=== PATIENT | male | born 1985 | race American Indian/Alaskan Native ===

== ENCOUNTER 2016-11-20 08:07 | Emergency (ER) | payer MEDICAID ==
[2016-11-20 08:07] VITALS: BMI 28.5
[2016-11-20 08:28] VITALS: BP 136/72; PULSE 71; RESP 15; TEMP 98.2; O2SAT 96
[2016-11-20] MEDS ORDERED: Oxycodone/Acetaminophen 5/325 mg Tab PO STA (09:18)
--- NOTE | 2016-11-20 09:23 | ED PDOC ---
Arrival/HPI - General Chief Complaint: Dental Pain Time Seen by Provider: 11/20/16 09:18 Historian: Patient - History of Present Illness Narrative History of Present Illness (Text): 11/20/16 09:20 31-year-old male presents today with left upper dental pain since 5 PM yesterday. No medications have been taken for pain at home. Patient describes a severe throbbing pain in the left upper molars. He denies trismus or drooling. No fevers or chills. Denies any trauma or injury. No other complaints Time/Duration: Other (5pm yesterday) Symptom Onset: Sudden Symptom Course: Worsening Quality: Throbbing Severity Level: Severe Past Medical History - Provider Review Nursing Documentation Reviewed: Yes - Travel History Have you recently traveled outside [place] w/in the past 3 mons?: No - Tetanus Immunization Tetanus Immunization: Unknown - Past Medical History Past Medical History: No Previous - Cardiac Hx Cardiac Disorders: Yes Hx Hypertension: Yes - Pulmonary Hx Respiratory Disorders: Yes Hx Bronchitis: Yes - Neurological Hx Neurological Disorder: Yes Hx Migraine: Yes - HEENT Hx HEENT Disorder: No - Renal Hx Renal Disorder: No - Endocrine/Metabolic Hx Endocrine Disorders: No - Hematological/Oncological Hx Blood Disorders: No - Integumentary Hx Dermatological Disorder: No - Musculoskeletal/Rheumatological Hx Musculoskeletal Disorders: No - Gastrointestinal Hx Gastrointestinal Disorders: No - Genitourinary/Gynecological Hx Genitourinary Disorders: No - Psychiatric Hx Psychophysiologic Disorder: No Hx Substance Use: No - Past Surgical History Past Surgical History: No Previous - Anesthesia Hx Anesthesia: No Hx Anesthesia Reactions: No Hx Malignant Hyperthermia: No Family/Social History - Physician Review Nursing Documentation Reviewed: Yes Family/Social History: Unknown Family HX Smoking Status: Former Smoker Hx Alcohol Use: No Hx Substance Use: No Allergies/Home Meds Allergies/Adverse Reactions: Allergies camomile lotion Allergy (Uncoded 11/20/16 08:27) RASH Review of Systems - Review of Systems Constitutional: absent: Fatigue, Fevers ENT: Other (left upper molar dental pain). absent: Sinus Congestion Respiratory: absent: SOB, Cough Cardiovascular: absent: Chest Pain, Palpitations Gastrointestinal: absent: Abdominal Pain, Nausea, Vomiting Skin: absent: Rash Neurological: absent: Headache, Dizziness Psychiatric: absent: Anxiety, Depression Physical Exam Vital Signs Reviewed: Yes Vital Signs Temp Pulse Resp BP Pulse Ox 11/20/16 08:27 98.2 F 71 15 136/72 96 Temperature: Afebrile Blood Pressure: Normal Pulse: Regular Respiratory Rate: Normal Appearance: Positive for: Well-Appearing, Non-Toxic, Comfortable Pain Distress: None Mental Status: Positive for: Alert and Oriented X 3 - Systems Exam Head: Present: Atraumatic Conjunctiva: Present: Normal Ears: Present: Normal, NORMAL TM Mouth: Present: Moist Mucous Membranes, Normal Lips, Normal Tounge. No: Drooling, Trismus, Normal Teeth (+ left upper molar fractures, with surrounding edema; no erythema; + tenderness) Pharnyx: Present: Normal. No: ERYTHEMA, EXUDATE, TONSILS ENLARGED, Peritonsilar Swelling, Uvular Deviation, Muffled/Hoarse Voice Neck: Present: Normal Range of Motion. No: Lymphadenopathy Respiratory/Chest: Present: Clear to Auscultation, Good Air Exchange. No: Respiratory Distress, Accessory Muscle Use Cardiovascular: Present: Regular Rate and Rhythm, Normal S1, S2. No: Murmurs Neurological: Present: GCS=15 Skin: Present: Warm, Dry Psychiatric: Present: Alert Medical Decision Making ED Course and Treatment: 11/20/16 09:22 Patient is nontoxic well-appearing in no distress with stable vital signs No trismus or drooling, moist mucous membranes Amoxicillin Toradol percocet Patient reassessment: Patient is feeling better after medications. I advised follow-up with the dentist within the next 2 days. I advised immediate return is symptoms worsen persist or if new concerning symptoms develop Patient verbalizes understanding of discharge instructions and need for immediate followup. Impression: Toothache Motrin every 6 hours as needed for pain Amoxicillin 1 tablet 3 times daily x 10 days percocet; 1 tablet three times daily x 10 days. Follow-up with the dentist within the next 2 days Return immediately if symptoms worsen persist or if new concerning symptoms develop - Medication Orders Current Medication Orders: Amoxicillin (Amoxil 500 Mg Cap) 500 mg PO STAT STA PRN Reason: Protocol Stop: 11/20/16 09:19 Ketorolac Tromethamine (Toradol) 60 mg IM STAT STA Stop: 11/20/16 09:19 Oxycodone/Acetaminophen (Percocet 5/325 Mg Tab) 1 tab PO STAT STA Stop: 11/20/16 09:19 Disposition/Present on Arrival - Present on Arrival Any Indicators Present on Arrival: No History of DVT/PE: No History of Uncontrolled Diabetes: No Urinary Catheter: No History of Decub. Ulcer: No History Surgical Site Infection Following: None - Disposition Have Diagnosis and Disposition been Completed?: Yes Diagnosis: Toothache Disposition: HOME/ ROUTINE Disposition Time: 09:24 Patient Plan: Discharge Condition: GOOD Discharge Instructions (ExitCare): Toothache (ED) Additional Instructions: Motrin every 6 hours as needed for pain Amoxicillin 1 tablet 3 times daily x 10 days percocet; 1 tablet three times daily x 10 days. Follow-up with the dentist within the next 2 days Return immediately if symptoms worsen persist or if new concerning symptoms develop Prescriptions: Amoxicillin 500 mg PO TID #30 tab Ibuprofen [Motrin] 600 mg PO Q6H PRN #20 tab PRN Reason: pain/fever reduction oxyCODONE/Acetaminophen [Percocet 5/325 mg Tab] 1 tab PO Q6H PRN #6 tab PRN Reason: moderate to severe pain Referrals: Dhruv Owens MD [Primary Care Provider] - Follow up with primary Tripp Alexandra DMD [Staff Provider] - Follow up with primary Tam Ceja DMD [Non-Staff] - Follow up with primary Forms: [email or web address] (Azeri), WORK NOTE
== END 2016-11-20 10:00 | disposition home or self-care (01) ==
LOC: ED 08:07
DX: K08.89 Other specified disorders of teeth and supporting structures (principal)
CPT/HCPCS: 96372; 99282; J1885

== ENCOUNTER 2017-01-16 23:40 | Emergency (ER) | payer MEDICAID ==
[2017-01-16 23:41] VITALS: BMI 28.5
[2017-01-17 00:09] VITALS: BP 138/84; PULSE 68; RESP 18; TEMP 98.8; O2SAT 99
--- NOTE | 2017-01-17 00:49 | ED PDOC ---
Arrival/HPI - General Chief Complaint: Cough, Cold, Congestion Time Seen by Provider: 01/17/17 00:42 Historian: Patient - History of Present Illness Narrative History of Present Illness (Text): 01/17/17 00:44 This 31-year-old male with a past medical history of asthma presents to the emergency department complaining of cough, and wheezing times x day. Patient denies shortness of breath, chest pain, abdominal pain, skin rash, urinary symptoms, recent travel, sick contacts dizziness, or abnormal gait Time/Duration: Other (1 day) Context: Home Past Medical History - Provider Review Nursing Documentation Reviewed: Yes - Tetanus Immunization Tetanus Immunization: Unknown - Past Medical History Past Medical History: No Previous - Cardiac Hx Cardiac Disorders: Yes Hx Hypertension: Yes - Pulmonary Hx Respiratory Disorders: Yes Hx Bronchitis: Yes - Neurological Hx Neurological Disorder: Yes Hx Migraine: Yes - HEENT Hx HEENT Disorder: No - Renal Hx Renal Disorder: No - Endocrine/Metabolic Hx Endocrine Disorders: No - Hematological/Oncological Hx Blood Disorders: No - Integumentary Hx Dermatological Disorder: No - Musculoskeletal/Rheumatological Hx Musculoskeletal Disorders: No - Gastrointestinal Hx Gastrointestinal Disorders: No - Genitourinary/Gynecological Hx Genitourinary Disorders: No - Psychiatric Hx Psychophysiologic Disorder: No Hx Substance Use: No - Past Surgical History Past Surgical History: No Previous - Anesthesia Hx Anesthesia: No Hx Anesthesia Reactions: No Hx Malignant Hyperthermia: No Family/Social History - Physician Review Nursing Documentation Reviewed: Yes Family/Social History: Other (noncontributory) Smoking Status: Former Smoker Hx Alcohol Use: No Hx Substance Use: No Allergies/Home Meds Allergies/Adverse Reactions: Allergies camomile lotion Allergy (Uncoded 11/20/16 08:27) RASH Review of Systems - Review of Systems Constitutional: Normal. absent: Fatigue, Weight Change, Fevers, Night Sweats Eyes: Normal ENT: Normal Respiratory: Cough, Sputum, Wheezing. absent: SOB Cardiovascular: Normal. absent: Chest Pain, Palpitations Gastrointestinal: Normal. absent: Abdominal Pain, Nausea, Vomiting Genitourinary Male: Normal. absent: Dysuria, Frequency, Hematuria Musculoskeletal: Normal Skin: Normal. absent: Rash Neurological: Normal. absent: Headache, Dizziness, Focal Weakness, Gait Changes , Speech Changes, Facial Droop, Disequilibrium Endocrine: Normal Hemo/Lymphatic: Normal Psychiatric: Normal Physical Exam Vital Signs Temp Pulse Resp BP Pulse Ox 10/13/17 00:07 98.8 F 68 18 138/84 99 Temperature: Afebrile Blood Pressure: Normal Pulse: Regular Respiratory Rate: Normal Appearance: Positive for: Well-Appearing, Non-Toxic, Comfortable Pain Distress: None Mental Status: Positive for: Alert and Oriented X 3 - Systems Exam Head: Present: Atraumatic, Normocephalic Pupils: Present: PERRL Extroacular Muscles: Present: EOMI Conjunctiva: Present: Normal Mouth: Present: Moist Mucous Membranes Pharnyx: Present: Normal. No: ERYTHEMA, EXUDATE, TONSILS ENLARGED Nose (External): Present: Atraumatic Nose (Internal): Present: Normal Inspection Neck: Present: Normal Range of Motion, Trachea Midline. No: Meningeal Signs Respiratory/Chest: Present: Wheezes, Rhonchi. No: Good Air Exchange, Respiratory Distress, Accessory Muscle Use, Decreased Breath Sounds, Rales, Retracting, Tachypneic, Tender to Palpation Cardiovascular: Present: Regular Rate and Rhythm, Normal S1, S2. No: Murmurs Abdomen: No: Tenderness Back: Present: Normal Inspection Upper Extremity: Present: Normal Inspection, Normal ROM Lower Extremity: Present: Normal Inspection, Normal ROM Neurological: Present: GCS=15, CN II-XII Intact, Speech Normal, Motor Func Grossly Intact, Normal Sensory Function, Normal Cerebellar Funct, Gait Normal, Memory Normal Skin: Present: Warm, Dry, Normal Color. No: Rashes Psychiatric: Present: Alert, Oriented x 3, Normal Insight, Normal Concentration Medical Decision Making ED Course and Treatment: 01/17/17 00:45 Re-evaluation. Patient feels better. Discussed results and plan with patient who expresses understanding. All questions answered and there is agreement with the plan to discharge home with instructions. Patient stable for discharge. Return if symptoms persist or worsen. Patient refused to have Nebulizer, since he is in a hurry to go home. He stated he has nebulizer at home. Patient was recommended to f/u pmd tomorrow for revaluation, and to return to emergency if symptoms worsen. I reviewed risk in using Prednisone including AVN, DM, glaucoma, osteoporosis, mood disordere, liver failure, renal failure. He stated he understood risk, but he would like to have a prescription for Prednisone. Re-evaluation Time: 00:45 Reassessment Condition: Re-examined - Medication Orders Current Medication Orders: Azithromycin (Zithromax) 500 mg PO STAT STA PRN Reason: Protocol Stop: 01/17/17 00:44 Prednisone (Prednisone Tab) 60 mg PO STAT ONE Stop: 01/17/17 00:44 Disposition/Present on Arrival - Present on Arrival Any Indicators Present on Arrival: No History of DVT/PE: No History of Uncontrolled Diabetes: No Urinary Catheter: No History of Decub. Ulcer: No History Surgical Site Infection Following: None - Disposition Have Diagnosis and Disposition been Completed?: Yes Diagnosis: Acute bronchitis Disposition: HOME/ ROUTINE Disposition Time: 00:45 Patient Plan: Discharge Condition: GOOD Discharge Instructions (ExitCare): Acute Bronchitis (ED) Additional Instructions: Call private doctor fro follow up visit in 1-2 days. Take medication as instructed. Return to emergency if symptoms worsen, fever, or worsening of symptoms. continue with nebulizer at home as instructed by your doctor Prescriptions: Azithromycin [Z-Sidney] 250 mg PO DAILY #4 tab Prednisone [Deltasone] 60 mg PO DAILY #9 tablet Promethazine [Phenergan Syrup] 12.5 mg PO Q6H PRN #120 ml PRN Reason: Cough Referrals: [facility] [Outside] - Follow up with primary [facility] [place] [Outside] - Follow up with primary
== END 2017-01-17 01:00 | disposition home or self-care (01) ==
LOC: ED 23:40
DX: J20.9 Acute bronchitis, unspecified (principal)

== ENCOUNTER 2017-04-20 14:41 | Emergency (ER) | payer OTHER, MEDICAID ==
[2017-04-20 14:58] VITALS: BMI 30.4
[2017-04-20 15:05] VITALS: TEMP 97.9; O2SAT 98
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
[2017-04-20 16:45] VITALS: BP 135/77; PULSE 76; RESP 16
== END 2017-04-20 16:45 ==
LOC: ED 14:41
DX: S09.90XA Unspecified injury of head, initial encounter (principal); V43.52XA Car driver injured in collision with other type car in traffic accident, initial encounter; Y92.410 Unspecified street and highway as the place of occurrence of the external cause; R51 Headache
CPT/HCPCS: 70450; 96372; 99284; J1885

== ENCOUNTER 2017-04-28 10:21 | Emergency (ER) | payer OTHER, MEDICAID ==
[2017-04-28 10:22] VITALS: BMI 30.4
[2017-04-28 10:36] VITALS: TEMP 98.3
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
[2017-04-28 13:58] VITALS: BP 128/72; PULSE 80; RESP 18; O2SAT 100
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
== END 2017-04-28 13:58 | disposition home or self-care (01) ==
LOC: ED 10:21
DX: M54.5 Low back pain (principal)
CPT/HCPCS: 72110; 96372; 99283; J1885

== ENCOUNTER 2017-05-11 10:45 | Emergency (ER) | payer MEDICAID, OTHER ==
[2017-05-11 10:45] VITALS: BMI 30.4
[2017-05-11 11:07] VITALS: RESP 18; TEMP 98.2; O2SAT 100
[2017-05-11] MEDS ORDERED: cefTRIAXone (Rocephin) 250 mg Inj IM STA (11:21)
--- NOTE | 2017-05-11 11:25 | ED PDOC ---
Arrival/HPI - General Chief Complaint: Male Genitourinary Time Seen by Provider: 05/11/17 10:51 Historian: Patient - History of Present Illness Narrative History of Present Illness (Text): 05/11/17 11:22 This 32 yo male whoe denies pmh, presents to this ED requesting STD test for unprotected sex x 2 days. Patient denies other complains. Patient is asymptomatic. Time/Duration: Other (noncontributory) Context: Home Past Medical History - Provider Review Nursing Documentation Reviewed: Yes - Infectious Disease Hx of Infectious Diseases: None - Tetanus Immunization Tetanus Immunization: Unknown - Past Medical History Past Medical History: No Previous - Cardiac Hx Cardiac Disorders: Yes Hx Hypertension: Yes - Pulmonary Hx Respiratory Disorders: Yes Hx Bronchitis: Yes - Neurological Hx Neurological Disorder: Yes Hx Migraine: Yes - HEENT Hx HEENT Disorder: No - Renal Hx Renal Disorder: No - Endocrine/Metabolic Hx Endocrine Disorders: No - Hematological/Oncological Hx Blood Disorders: No - Integumentary Hx Dermatological Disorder: No - Musculoskeletal/Rheumatological Hx Musculoskeletal Disorders: Yes Hx Back Pain: Yes - Gastrointestinal Hx Gastrointestinal Disorders: No - Genitourinary/Gynecological Hx Genitourinary Disorders: No - Psychiatric Hx Psychophysiologic Disorder: No Hx Substance Use: No - Past Surgical History Past Surgical History: No Previous - Anesthesia Hx Anesthesia: No Family/Social History - Physician Review Nursing Documentation Reviewed: Yes Family/Social History: Other (noncontributory) Smoking Status: Former Smoker Hx Alcohol Use: No Hx Substance Use: No Allergies/Home Meds Allergies/Adverse Reactions: Allergies camomile lotion Allergy (Uncoded 05/11/17 11:13) RASH Home Medications: Home Meds Medication Instructions Recorded Confirmed Amitriptyline [Elavil] 25 mg PO HS 04/28/17 04/28/17 Review of Systems - Review of Systems Constitutional: Normal. absent: Fatigue, Weight Change, Fevers Eyes: Normal ENT: Normal Respiratory: Normal Cardiovascular: Normal Gastrointestinal: Normal Genitourinary Male: Normal, Other (STD exposure). absent: Dysuria, Frequency Musculoskeletal: Normal Skin: Normal Neurological: Normal Endocrine: Normal Hemo/Lymphatic: Normal Psychiatric: Normal Physical Exam Vital Signs Temp Pulse Resp BP Pulse Ox 05/11/17 11:06 98.2 F 79 18 126/73 100 Temperature: Afebrile Blood Pressure: Normal Pulse: Regular Respiratory Rate: Normal Appearance: Positive for: Well-Appearing, Non-Toxic, Comfortable Pain Distress: None Mental Status: Positive for: Alert and Oriented X 3 - Systems Exam Head: Present: Atraumatic, Normocephalic Pupils: Present: PERRL Extroacular Muscles: Present: EOMI Conjunctiva: Present: Normal Mouth: Present: Moist Mucous Membranes Neck: Present: Normal Range of Motion Respiratory/Chest: Present: Clear to Auscultation, Good Air Exchange. No: Respiratory Distress, Accessory Muscle Use Cardiovascular: Present: Regular Rate and Rhythm, Normal S1, S2. No: Murmurs Abdomen: Present: Normal Bowel Sounds. No: Tenderness, Distention, Peritoneal Signs Genitourinary Male: Present: Other (deferred by pt) Back: Present: Normal Inspection. No: CVA Tenderness Upper Extremity: Present: Normal Inspection, Normal ROM. No: Cyanosis, Edema Lower Extremity: Present: Normal Inspection, Normal ROM. No: Edema Neurological: Present: GCS=15, CN II-XII Intact, Speech Normal Skin: Present: Warm, Dry, Normal Color. No: Rashes Psychiatric: Present: Alert, Oriented x 3, Normal Insight, Normal Concentration Medical Decision Making ED Course and Treatment: 05/11/17 11:26 Patient requested STD test for unprotected sexual intercourse x 2 days -GC/Chlamydia test -Rocephin IM, and Azithromycin PO -Patient was recommended to review STD test with his doctor in 2-3 days. Re-evaluation Time: 11:27 Reassessment Condition: Re-examined, Unchanged Disposition/Present on Arrival - Present on Arrival Any Indicators Present on Arrival: No History of DVT/PE: No History of Uncontrolled Diabetes: No Urinary Catheter: No History of Decub. Ulcer: No History Surgical Site Infection Following: None - Disposition Have Diagnosis and Disposition been Completed?: Yes Diagnosis: STD exposure Disposition: HOME/ ROUTINE Disposition Time: 11:28 Patient Plan: Discharge Patient Problems: Current Active Problems Problem Status Onset STD exposure Acute Condition: GOOD Discharge Instructions (ExitCare): Sexually Transmitted Diseases (ED), Safe Sex (ED) Additional Instructions: Call private doctor for follow up visit in 2-3 days. Review STD test with your doctor in 2-3 days. Referrals: [facility] [Outside] - Follow up with primary [facility] [Outside] - Follow up with primary
[2017-05-11 12:00] VITALS: BP 124/71; PULSE 74
== END 2017-05-11 12:14 | disposition home or self-care (01) ==
LOC: ED 10:45
DX: Z20.2 Contact with and (suspected) exposure to infections with a predominantly sexual mode of transmission (principal); I10 Essential (primary) hypertension; Z87.891 Personal history of nicotine dependence
CPT/HCPCS: 87491; 87591; 96372; 99284; J0696

== ENCOUNTER 2017-05-14 09:32 | Emergency (ER) | payer MEDICAID ==
[2017-05-14 09:32] VITALS: BMI 30.4
[2017-05-14 10:04] VITALS: RESP 18; TEMP 98
--- NOTE | 2017-05-14 10:22 | ED PDOC ---
Arrival/HPI - General Chief Complaint: Flu-like Symptoms Time Seen by Provider: 05/14/17 10:12 Historian: Patient - History of Present Illness Narrative History of Present Illness (Text): 05/14/17 10:22 This 32 yo male presents to this ED c/o sore throat, and dry cough x 1 day. Patient admits feeling chill, but he has not have fever yet. Patient denies myalgias, sob, cp, abdominal pain, urinary symptoms, or abnormal gait. Time/Duration: Other (see hpi) Context: Home Past Medical History - Provider Review Nursing Documentation Reviewed: Yes - Infectious Disease Hx of Infectious Diseases: None - Tetanus Immunization Tetanus Immunization: Unknown - Past Medical History Past Medical History: No Previous - Cardiac Hx Cardiac Disorders: Yes Hx Hypertension: Yes - Pulmonary Hx Respiratory Disorders: Yes Hx Bronchitis: Yes - Neurological Hx Neurological Disorder: Yes Hx Migraine: Yes - HEENT Hx HEENT Disorder: No - Renal Hx Renal Disorder: No - Endocrine/Metabolic Hx Endocrine Disorders: No - Hematological/Oncological Hx Blood Disorders: No - Integumentary Hx Dermatological Disorder: No - Musculoskeletal/Rheumatological Hx Musculoskeletal Disorders: Yes Hx Back Pain: Yes - Gastrointestinal Hx Gastrointestinal Disorders: No - Genitourinary/Gynecological Hx Genitourinary Disorders: No - Psychiatric Hx Psychophysiologic Disorder: No Hx Substance Use: No - Past Surgical History Past Surgical History: No Previous - Anesthesia Hx Anesthesia: No Family/Social History - Physician Review Nursing Documentation Reviewed: Yes Family/Social History: Other (noncontributory) Smoking Status: Former Smoker Hx Alcohol Use: No Hx Substance Use: No Allergies/Home Meds Allergies/Adverse Reactions: Allergies camomile lotion Allergy (Uncoded 05/14/17 10:04) RASH Review of Systems - Review of Systems Constitutional: Other (chiils). absent: Fatigue, Weight Change, Fevers Eyes: Normal ENT: Normal Respiratory: Cough. absent: SOB, Sputum Cardiovascular: Normal. absent: Chest Pain Gastrointestinal: Normal. absent: Abdominal Pain, Nausea, Vomiting Genitourinary Male: Normal. absent: Dysuria, Frequency, Hematuria Musculoskeletal: Normal. absent: Myalgias Skin: Normal. absent: Rash Neurological: Normal. absent: Headache, Dizziness, Focal Weakness, Gait Changes , Speech Changes, Facial Droop, Disequilibrium, Seizure Endocrine: Normal Hemo/Lymphatic: Normal Psychiatric: Normal Physical Exam Vital Signs Temp Pulse Resp BP Pulse Ox 05/14/17 11:29 65 18 138/71 100 05/14/17 10:01 98 F 67 18 140/84 96 Temperature: Afebrile Blood Pressure: Normal Pulse: Regular Respiratory Rate: Normal Appearance: Positive for: Well-Appearing, Non-Toxic, Comfortable Pain Distress: None Mental Status: Positive for: Alert and Oriented X 3 - Systems Exam Head: Present: Atraumatic, Normocephalic Pupils: Present: PERRL Extroacular Muscles: Present: EOMI Conjunctiva: Present: Normal Mouth: Present: Moist Mucous Membranes, Normal Lips, Normal Tounge, Normal Teeth. No: Drooling Pharnyx: Present: Normal. No: ERYTHEMA, EXUDATE, TONSILS ENLARGED Neck: Present: Normal Range of Motion, Trachea Midline. No: Meningeal Signs, MIDLINE TENDERNESS, Paraspinal Tenderness, Lymphadenopathy Respiratory/Chest: Present: Clear to Auscultation, Good Air Exchange. No: Respiratory Distress, Accessory Muscle Use, Wheezes, Retracting, Rhonchi, Tender to Palpation Cardiovascular: Present: Regular Rate and Rhythm, Normal S1, S2. No: Murmurs Abdomen: Present: Normal Bowel Sounds. No: Tenderness, Distention, Peritoneal Signs Back: Present: Normal Inspection Upper Extremity: Present: Normal Inspection, Normal ROM. No: Cyanosis, Edema Lower Extremity: Present: Normal Inspection, Normal ROM. No: Edema Neurological: Present: GCS=15, CN II-XII Intact, Speech Normal Skin: Present: Warm, Dry, Normal Color. No: Rashes Psychiatric: Present: Alert, Oriented x 3, Normal Insight, Normal Concentration Medical Decision Making ED Course and Treatment: 05/14/17 11:50 Re-evaluation. Patient feels better. Discussed results and plan with patient who expresses understanding. All questions answered and there is agreement with the plan to discharge home with instructions. Patient stable for discharge. Return if symptoms persist or worsen. Influenza and Rapid strep Tests were negative Re-evaluation Time: 11:50 Reassessment Condition: Re-examined, Improved - Lab Interpretations Lab Results: Lab Results 05/14/17 11:09: Influenza Typ A,B (EIA) Negative for flu a/b 05/14/17 11:09: Grp A Beta Strep Ag Negative I have reviewed the lab results: Yes Interpretation: No clinic. lab abnormalty Disposition/Present on Arrival - Present on Arrival Any Indicators Present on Arrival: No History of DVT/PE: No History of Uncontrolled Diabetes: No Urinary Catheter: No History of Decub. Ulcer: No History Surgical Site Infection Following: None - Disposition Have Diagnosis and Disposition been Completed?: Yes Diagnosis: Upper respiratory infection Disposition: HOME/ ROUTINE Disposition Time: 11:48 Patient Plan: Discharge Patient Problems: Current Active Problems Problem Status Onset Upper respiratory infection Acute Condition: GOOD Discharge Instructions (ExitCare): Upper Respiratory Infection (ED) Additional Instructions: Call private doctor for follow up visit in 1-2 days. take medication as instructed. Return to emergency if symptoms worsen. Prescriptions: Ibuprofen [Motrin] 600 mg PO Q8 PRN #20 tab PRN Reason: Fever >100.4 F Promethazine [Phenergan Syrup] 6.25 mg PO Q4H PRN #120 ml PRN Reason: Cough Referrals: [facility] [Outside] - Follow up with primary [facility] [Outside] - Follow up with primary Forms: [employer] (Palestinian)
[2017-05-14 11:29] VITALS: BP 138/71; PULSE 65; O2SAT 100
== END 2017-05-14 11:56 | disposition home or self-care (01) ==
LOC: ED 09:32
DX: J06.9 Acute upper respiratory infection, unspecified (principal); Z87.891 Personal history of nicotine dependence; I10 Essential (primary) hypertension

== ENCOUNTER 2017-11-15 18:58 | Emergency (ER) | payer MEDICAID, OTHER ==
[2017-11-15 18:59] VITALS: BMI 30.4
--- NOTE | 2017-11-15 19:34 | ED PDOC ---
Arrival/HPI - General Historian: Patient <Fara Ventura - Last Filed: 11/15/17 20:28> <Roger Pressley - Last Filed: 11/15/17 20:55> - General Chief Complaint: Dental Pain Time Seen by Provider: 11/15/17 19:02 - History of Present Illness Narrative History of Present Illness (Text): 11/15/17 19:47 32-year-old male presents today with a 4 day history of worsening right lower dental pain. Patient states he has had a broken tooth for months now. Patient states there was no pain until about 4 days ago. Patient describes an 8 out of 10 throbbing sensation to the right lower gum. He denies trismus or drooling. Denies fevers or chills. Denies difficulty breathing or swallowing. Patient states he was seen at another doctor and given Motrin for pain without improvement. Patient states he called his dentist but the office was closed. No other complaints (Fara Ventura) Past Medical History - Provider Review Nursing Documentation Reviewed: Yes - Travel History Have you recently traveled outside [place] w/in the past 3 mons?: No - Infectious Disease Hx of Infectious Diseases: None - Tetanus Immunization Tetanus Immunization: Unknown - Past Medical History Past Medical History: No Previous - Cardiac Hx Cardiac Disorders: Yes Hx Hypertension: Yes - Pulmonary Hx Respiratory Disorders: Yes Hx Bronchitis: Yes - Neurological Hx Neurological Disorder: Yes Hx Migraine: Yes - HEENT Hx HEENT Disorder: No - Renal Hx Renal Disorder: No - Endocrine/Metabolic Hx Endocrine Disorders: No - Hematological/Oncological Hx Blood Disorders: No - Integumentary Hx Dermatological Disorder: No - Musculoskeletal/Rheumatological Hx Musculoskeletal Disorders: Yes Hx Back Pain: Yes - Gastrointestinal Hx Gastrointestinal Disorders: No - Genitourinary/Gynecological Hx Genitourinary Disorders: No - Psychiatric Hx Psychophysiologic Disorder: No Hx Substance Use: No - Past Surgical History Past Surgical History: No Previous - Anesthesia Hx Anesthesia: No <Fara Ventura - Last Filed: 11/15/17 20:28> Family/Social History - Physician Review Nursing Documentation Reviewed: Yes Family/Social History: Unknown Family HX Smoking Status: Former Smoker Hx Alcohol Use: No Hx Substance Use: No <Fara Ventura - Last Filed: 11/15/17 20:28> Allergies/Home Meds <Fara Ventura - Last Filed: 11/15/17 20:28> <Roger Pressley - Last Filed: 11/15/17 20:55> Allergies/Adverse Reactions: Allergies camomile lotion Allergy (Uncoded 11/15/17 19:25) RASH Review of Systems - Review of Systems Constitutional: absent: Fatigue, Fevers ENT: Other (dental pain) Respiratory: absent: SOB, Cough Cardiovascular: absent: Chest Pain, Palpitations Gastrointestinal: absent: Abdominal Pain, Nausea, Vomiting Musculoskeletal: absent: Back Pain, Neck Pain Skin: absent: Rash, Pruritis Neurological: absent: Headache, Dizziness Psychiatric: absent: Anxiety, Depression <Fara Ventura - Last Filed: 11/15/17 20:28> Physical Exam Vital Signs Reviewed: Yes Temperature: Afebrile Blood Pressure: Hypertensive Pulse: Regular Respiratory Rate: Normal Appearance: Positive for: Well-Appearing, Non-Toxic, Comfortable Pain Distress: None Mental Status: Positive for: Alert and Oriented X 3 - Systems Exam Head: Present: Atraumatic Extroacular Muscles: Present: EOMI Conjunctiva: Present: Normal Ears: Present: Normal, NORMAL TM, Erythema Mouth: Present: Moist Mucous Membranes, Normal Lips, Normal Tounge. No: Drooling, Trismus, Normal Teeth (+ dental fracture of right lower molar; no edema, no erythema; no abscess noted. ) Pharnyx: Present: Normal. No: ERYTHEMA, EXUDATE, TONSILS ENLARGED, Uvular Deviation, Muffled/Hoarse Voice, Strider Nose (External): Present: Atraumatic Nose (Internal): Present: Normal Inspection Neck: Present: Normal Range of Motion, Trachea Midline. No: Lymphadenopathy Respiratory/Chest: Present: Clear to Auscultation, Good Air Exchange. No: Respiratory Distress, Accessory Muscle Use Cardiovascular: Present: Regular Rate and Rhythm, Normal S1, S2. No: Murmurs Skin: Present: Warm, Dry, Normal Color. No: Rashes Psychiatric: Present: Alert, Oriented x 3 <Fara Ventura - Last Filed: 11/15/17 20:28> Vital Signs Temp Pulse Resp BP Pulse Ox 11/15/17 19:18 98.8 F 78 17 162/94 H 99 Medical Decision Making Reassessment Condition: Re-examined, Improved <Fara Ventura - Last Filed: 11/15/17 20:28> <Roger Pressley - Last Filed: 11/15/17 20:55> ED Course and Treatment: 11/15/17 19:49 Patient is nontoxic well-appearing in no distress with stable vital signs No trismus or drooling, moist mucous membranes Amoxicillin Toradol Patient reassessment: Patient is feeling better after medications. advised patient of elevated blood pressure and need to take his BP medications at home and f/u with PMD. I advised follow-up with the dentist within the next 2 days. I advised immediate return is symptoms worsen persist or if new concerning symptoms develop Patient verbalizes understanding of discharge instructions and need for immediate followup. all aspects of this case were discussed the attending of record. Impression: Toothache Motrin every 6 hours as needed for pain tramadol; 1 tablet every 6 hours as needed for moderate to severe pain; may cause drowsiness. Amoxicillin 1 tablet 3 times daily 10 days Follow-up with the dentist within the next 2 days Follow up with the primary care physician within the next 2 days regarding your high blood pressure. Return immediately if symptoms worsen persist or if new concerning symptoms develop (Fara Ventura) - Medication Orders Current Medication Orders: Discontinued Medications Amoxicillin (Amoxil 500 Mg Cap) 500 mg PO STAT STA PRN Reason: Protocol Stop: 11/15/17 19:29 Last Admin: 11/15/17 19:41 Dose: 500 mg Ketorolac Tromethamine (Toradol) 60 mg IM STAT STA Stop: 11/15/17 19:29 Last Admin: 11/15/17 19:41 Dose: 60 mg MAR Pain Assessment Document 11/15/17 19:41 IT (Rec: 11/15/17 19:41 IT [id number]) Pain Reassessment Is this a pain reassessment? No Sleep Is patient sleeping during reassessment? No Presence of Pain Presence of Pain Yes Pain Scale Used Pain Scale Used Numeric Location Left, Right or Bilateral Right Upper or Lower Lower IM Administration Charges Document 11/15/17 19:41 IT (Rec: 11/15/17 19:41 IT [id number]) Injection Site MAR Injection Site Left Deltoid Charges for Administration # of IM Administrations 1 - PA / MANAGER BRIDGE / Resident Statement MD/DO has reviewed & agrees with the documentation as recorded. <Roger Pressley - Last Filed: 11/15/17 20:55> Disposition/Present on Arrival - Present on Arrival Any Indicators Present on Arrival: No History of DVT/PE: No History of Uncontrolled Diabetes: No Urinary Catheter: No History of Decub. Ulcer: No History Surgical Site Infection Following: None - Disposition Have Diagnosis and Disposition been Completed?: Yes Disposition Time: 19:30 Patient Plan: Discharge <Fara Ventura Karlee - Last Filed: 11/15/17 20:28> <Roger Pressley - Last Filed: 11/15/17 20:55> - Disposition Diagnosis: Toothache Disposition: HOME/ ROUTINE Condition: GOOD Discharge Instructions (ExitCare): Dental Pain (DC) Additional Instructions: Motrin every 6 hours as needed for pain tramadol; 1 tablet every 6 hours as needed for moderate to severe pain; may cause drowsiness. Amoxicillin 1 tablet 3 times daily 10 days Follow-up with the dentist within the next 2 days Follow up with the primary care physician within the next 2 days regarding your high blood pressure. Return immediately if symptoms worsen persist or if new concerning symptoms develop Prescriptions: Amoxicillin 500 mg PO TID #30 tab Ibuprofen [Motrin] 600 mg PO Q6H PRN #20 tab PRN Reason: pain/fever reduction traMADol [Ultram] 50 mg PO Q6H PRN #6 tab PRN Reason: moderate to severe pain Referrals: Tam Ceja DMD [Non-Staff] - Follow up with primary Tripp Alexandra DMD [Staff Provider] - Follow up with primary Angie Howell MD [Staff Provider] - Follow up with primary [facility] – [place], [place] [Outside] - Follow up with primary Forms: [employer] (Guyanese), WORK NOTE
[2017-11-15 21:23] VITALS: BP 158/90; PULSE 72; RESP 16; TEMP 98.6; O2SAT 98
== END 2017-11-15 20:10 | disposition home or self-care (01) ==
LOC: ED 18:58
DX: K08.89 Other specified disorders of teeth and supporting structures (principal)
CPT/HCPCS: 96372; 99282; J1885